=== PATIENT | female | born 1985 | race Caucasian/White ===

== ENCOUNTER 2016-08-28 08:48 | Emergency (ER) | payer BC, OTHER ==
[2016-08-28 09:11] VITALS: BP 149/94
--- NOTE | 2016-08-28 09:39 | UC ---
Throat Pain/Nasal Yefri HPI - HPI Summary HPI Summary: NASAL CONGESTION / COUGH X 7 DAYS + SINUS PAIN AND PRESSURE , NO FEVER, + CHILLS, TOOK LEFT OVER DOXY , STARTED HAVING FACIAL SWELLING AND ITCHY EYES, NO SOB , + WHEEZING - History of Current Complaint Chief Complaint: UCRespiratory Stated Complaint: EYE/LIP COMPLAINT/CONGESTION SORE THROAT Time Seen by Provider: 08/28/16 09:24 Hx Obtained From: Patient Hx Last Menstrual Period: n/a Onset/Duration: Gradual Onset, Lasting Days - 7, Still Present Severity: Moderate Cough: Nonproductive Associated Signs & Symptoms: Positive: Wheezing, Sinus Discomfort, Nasal Discharge. Negative: Fever, Rash - Allergies/Home Medications Allergies/Adverse Reactions: Allergies Allergy/AdvReac Type Severity Reaction Status Date / Time Sulfamethoxazole Allergy Severe Vomiting Verified 08/28/16 09:32 w/Trimethoprim [From Bactrim] Erythromycin [From Pediazole] Allergy Intermediate Hives Verified 08/28/16 09:32 Sulfisoxazole Allergy Intermediate Hives Verified 08/28/16 09:32 [From Pediazole] Ciprofloxacin [From Cipro] Allergy MOUTH AND Verified 08/28/16 09:32 OFELIA SWELLING Penicillins AdvReac Intermediate Diarrhea Verified 08/28/16 09:32 ?doxycycline Allergy Swelling Uncoded 08/28/16 09:32 Of Face,Lips,& Throat Home Medications: Home Medications Tbvcdgo-Nusitaztvezzv-Vvnnaopx [Excedrin Extra Strength] 2 tab PO BID PRN [History Confirmed 08/28/16] Cetirizine* [ZyrTEC 10 MG TAB*] 10 mg PO DAILY PRN 08/28/16 [History Confirmed 08/28/16] Doxycycline TAB(NF) [Doxycycline (NF)] 100 mg PO BID 08/28/16 [History Confirmed 08/28/16] Levonorgestrel (Iud) [Mirena IUD] 20 mcg IU DAILY 08/28/16 [History Confirmed ] Bnjnsvdbgcngn-Jsrpglocmn-Kndac [Nyquil Severe Cold/Flu 5-6.25-10-325 mg/15Ml] 1 liq PO QPM PRN 08/28/16 [History Confirmed 08/28/16] Zinc Gluconate [Cold-Eeze] 13.3 mg PO TID PRN 08/28/16 [History Confirmed ] predniSONE TAB* [Deltasone TAB*] 30 mg PO BID 08/28/16 [History Confirmed ] PMH/Surg Hx/FS Hx/Imm Hx - Additional Past Medical History Additional PMH: HX OF ASTHMA, ON NEEDED ALBUTEROL INH Respiratory History Of: Reports: Asthma - Surgical History Surgical History: Yes Surgery Procedure, Year, and Place: Appendectomy 10/05 - Family History Known Family History: Negative: Diabetes - Social History Alcohol Use: Occasionally Substance Use Type: None Smoking Status (MU): Former Smoker Type: Cigarettes Have You Smoked in the Last Year: Yes Review of Systems Constitutional: Chills, Fatigue Skin: Negative Eyes: Eye Redness ENT: Sore Throat, Nasal Discharge Respiratory: Cough Cardiovascular: Negative Gastrointestinal: Negative All Other Systems Reviewed And Are Negative: Yes Physical Exam Triage Information Reviewed: Yes Appearance: Well-Appearing, No Pain Distress, Well-Nourished Vital Signs: Initial Vital Signs Temp 97.6 F 08/28/16 08:58 Pulse 96 08/28/16 08:58 Resp 18 08/28/16 08:58 BP 149/94 08/28/16 08:58 Pulse Ox 98 08/28/16 08:58 Vital Signs Reviewed: Yes Eyes: Positive: Conjunctiva Inflamed ENT: Positive: Normal ENT inspection, Pharyngeal erythema, Nasal congestion, Nasal drainage, TMs normal Neck: Positive: Supple, Nontender, No Lymphadenopathy Respiratory: Positive: Chest non-tender, Lungs clear, Normal breath sounds Cardiovascular: Positive: RRR, No Murmur, Pulses Normal Skin Exam: Normal Throat Pain/Nasal Course/Dx - Course Assessment/Plan: ELEVATED BLOOD PRESSURE DUE TO CURRENT ILLNESS. PT. WILL FOLLOW UP WITH HER PCP IN ONE WEEK - Differential Dx/Diagnosis Provider Diagnoses: SINUSITIS. BRONCHITIS. ALLERGIC REACTION TO MEDS Discharge - Discharge Plan Condition: Stable Disposition: HOME Prescriptions: Albuterol HFA INHALER* [Ventolin HFA Inhaler*] 1 - 2 puff INH Q4H PRN #1 mdi PRN Reason: Wheezing Amoxicillin/Clavulanate TAB* [Augmentin TAB 875*] 875 mg PO BID #20 tab predniSONE TAB* [Deltasone TAB*] 40 mg PO DAILY #10 tab Patient Education Materials: Sinusitis (ED), Acute Bronchitis (ED) Forms: *Work Release Referrals: No Primary Care Phys,NOPCP [Primary Care Provider] - If Needed
== END 2016-08-28 09:45 | disposition home or self-care (01) ==
LOC: UCCORT 08:48
DX: J32.9 Chronic sinusitis, unspecified (principal); J40 Bronchitis, not specified as acute or chronic; R22.0 Localized swelling, mass and lump, head; T36.4X5A Adverse effect of tetracyclines, initial encounter; Y92.9 Unspecified place or not applicable; R03.0 Elevated blood-pressure reading, without diagnosis of hypertension; Z88.1 Allergy status to other antibiotic agents; Z88.0 Allergy status to penicillin; Z88.2 Allergy status to sulfonamides; Z87.891 Personal history of nicotine dependence
CPT/HCPCS: 99212; G0463

== ENCOUNTER 2016-08-31 17:58 | Emergency (ER) | payer BC ==
[2016-08-31] MEDS ORDERED: Ipratropium 0.5MG/2.5ML NEB* 0.5 MG/2.5 ML NEB.SOLN INH ONE ×2 (19:05→20:22)
--- NOTE | 2016-08-31 19:12 | UC ---
Respiratory Complaint HPI - HPI Summary HPI Summary: 31 yo female with cough and wheezing for about a week using rescue inhaler on day four of prednisone and augmentin and not improving - History of Current Complaint Chief Complaint: UCGeneralIllness Stated Complaint: HEAD CONGESTION, COUGH Time Seen by Provider: 08/31/16 18:58 Hx Obtained From: Patient Hx Last Menstrual Period: MIRENA Onset/Duration: Gradual Onset, Lasting Days Timing: Constant Severity Initially: Mild Severity Currently: Moderate Pain Intensity: 4 Pain Scale Used: 0-10 Numeric Character: Cough: Nonproductive Aggravating Factors: Exertion Alleviating Factors: Bronchodilator Associated Signs And Symptoms: Positive: Dyspnea, Fever - at onset, Wheezing, Nasal Congestion, Sinus Discomfort - Allergies/Home Medications Allergies/Adverse Reactions: Allergies Allergy/AdvReac Type Severity Reaction Status Date / Time Sulfamethoxazole Allergy Severe Vomiting Verified 08/31/16 18:51 w/Trimethoprim [From Bactrim] Erythromycin [From Pediazole] Allergy Intermediate Hives Verified 08/31/16 18:51 Sulfisoxazole Allergy Intermediate Hives Verified 08/31/16 18:51 [From Pediazole] Ciprofloxacin [From Cipro] Allergy MOUTH AND Verified 08/31/16 18:51 OFELIA SWELLING Penicillins AdvReac Intermediate Diarrhea Verified 08/31/16 18:51 ?doxycycline Allergy Swelling Uncoded 08/31/16 18:51 Of Face,Lips,& Throat Home Medications: Home Medications Acetaminophen [Extra Strength Acetaminop] 1,000 mg PO Q6H PRN 08/31/16 [History Confirmed 08/31/16] PMH/Surg Hx/FS Hx/Imm Hx Previously Healthy: Yes Respiratory History Of: Reports: Asthma, Bronchitis - Surgical History Surgical History: Yes Surgery Procedure, Year, and Place: Appendectomy 10/05 - Family History Known Family History: Positive: Hypertension, Respiratory Disease Negative: Diabetes - Social History Alcohol Use: Occasionally Substance Use Type: None Smoking Status (MU): Former Smoker Type: Cigarettes Have You Smoked in the Last Year: Yes When Did the Patient Quit Smoking/Using Tobacco: 2012 Review of Systems Constitutional: Fatigue Skin: Negative Eyes: Negative ENT: Nasal Discharge Respiratory: Shortness Of Breath, Cough Cardiovascular: Negative Gastrointestinal: Negative Genitourinary: Negative Motor: Negative Neurovascular: Negative Musculoskeletal: Negative Neurological: Negative Psychological: Negative All Other Systems Reviewed And Are Negative: Yes Physical Exam Triage Information Reviewed: Yes Appearance: Well-Appearing, No Pain Distress, Well-Nourished Vital Signs: Initial Vital Signs Temp 99.5 F 08/31/16 18:43 Pulse 75 08/31/16 18:43 Resp 16 08/31/16 18:43 BP 140/91 08/31/16 18:43 Pulse Ox 96 08/31/16 18:43 Eyes: Positive: Conjunctiva Clear ENT: Positive: Hearing grossly normal, Nasal congestion, Nasal drainage, TMs normal. Negative: Tonsillar swelling, Tonsillar exudate, Trismus, Muffled/ hoarse voice Dental: Negative: Gross Decay/Caries @, Dental Fracture @ Neck: Positive: Supple, Nontender, No Lymphadenopathy Respiratory: Positive: No respiratory distress, No accessory muscle use, Wheezing Cardiovascular: Positive: RRR, No Murmur, Pulses Normal UC Diagnostic Evaluation - Laboratory O2 Sat by Pulse Oximetry: 96 - normal/not hypoxic Re-Evaluation - Re-Evaluation First Eval Re-Evaluation Time: 19:55 Change: Improved - still wheezing a lot/but better air movement Second Eval Re-Evaluation Time: 21:15 Change: Improved - better air movement but with significant wheezing Respiratory Course/Dx - Differential Dx/Diagnosis Provider Diagnoses: acute bronchitis with bronchospasm Discharge - Discharge Plan Condition: Stable Disposition: HOME Prescriptions: Albuterol 2.5MG/3ML (0.083%)* [Ventolin 2.5 MG/3 ML NEB.KOFI*] 2.5 mg INH QID PRN #1 neb.kofi PRN Reason: Wheezing Ipratropium 0.5MG/2.5ML NEB* [Atrovent 0.5 MG NEB.KOFI*] 0.5 mg INH QID PRN #1 meb.soln PRN Reason: Sob/Wheezing Prednisone 60 mg PO DAILY #9 tab Patient Education Materials: Bronchospasm (ED) Forms: *Work Release Referrals: [facility] [place] [facility] [Outside] - As Soon As Possible Additional Instructions: You need to find a cloth feeder return for new or worsening symptoms call around to find a nebulizer/call us in AM if you can not find a local pharmacy with one your BP is a little elevated and needs to be followed
[2016-08-31] MEDS: Albuterol 2.5 MG/3 ML NEB.SOL* (0.083%) INH ONE (19:18)
[2016-08-31] MEDS ORDERED: predniSONE TAB* 20 MG PO ONE (19:56)
[2016-08-31] MEDS ORDERED: Albuterol 2.5 MG/3 ML NEB.SOL* (0.083%) INH ONE (20:22)
--- NOTE | 2016-08-31 21:04 | RAD ---
Indication: Cough, wheezing. 2 views of the chest demonstrate no mediastinal shift. Heart is of normal size and configuration. Lung clark demonstrate no pleural fluid, pneumonia or pneumothorax. When compared to previous exam of August 03, 2008 no significant change is noted. IMPRESSION: No active cardiopulmonary disease is noted.
[2016-08-31 21:41] VITALS: BP 136/97
== END 2016-08-31 21:41 | disposition home or self-care (01) ==
LOC: UCCORT 17:58
DX: J20.9 Acute bronchitis, unspecified (principal); Z88.1 Allergy status to other antibiotic agents; Z88.0 Allergy status to penicillin; Z88.2 Allergy status to sulfonamides; Z87.891 Personal history of nicotine dependence
CPT/HCPCS: 71020; 99213; G0463; J7512; J7644

== ENCOUNTER 2017-02-23 09:06 | Emergency (ER) | payer BC ==
[2017-02-23 09:29] VITALS: BP 135/82
--- NOTE | 2017-02-23 09:41 | UC ---
Throat Pain/Nasal Yefri HPI - HPI Summary HPI Summary: SORE THROAT X 3 DAYS PAIN IS SEVER, MOSTLY ON THE LEFT SIDE NO FEVER, NO CHILLS NO COUGH, NO NASAL CONGESTION - History of Current Complaint Chief Complaint: UCRespiratory Stated Complaint: SORE THROAT Time Seen by Provider: 02/23/17 09:33 Hx Obtained From: Patient Hx Last Menstrual Period: unknown, has mirena ?: No Onset/Duration: Gradual Onset, Lasting Days - 3, Still Present Severity: Severe Cough: None Associated Signs & Symptoms: Negative: Sinus Discomfort, Nasal Discharge, Fever - Allergies/Home Medications Allergies/Adverse Reactions: Allergies Allergy/AdvReac Type Severity Reaction Status Date / Time Sulfamethoxazole Allergy Severe Vomiting Verified 02/23/17 09:30 w/Trimethoprim [From Bactrim] Erythromycin [From Pediazole] Allergy Intermediate Hives Verified 02/23/17 09:30 Sulfisoxazole Allergy Intermediate Hives Verified 02/23/17 09:30 [From Pediazole] Ciprofloxacin [From Cipro] Allergy MOUTH AND Verified 02/23/17 09:30 OFELIA SWELLING Penicillins AdvReac Intermediate Diarrhea Verified 02/23/17 09:30 ?doxycycline Allergy Swelling Uncoded 02/23/17 09:30 Of Face,Lips,& Throat PMH/Surg Hx/FS Hx/Imm Hx Previously Healthy: Yes - Surgical History Surgical History: Yes Surgery Procedure, Year, and Place: Appendectomy 10/05 - Family History Known Family History: Positive: Hypertension, Respiratory Disease Negative: Diabetes - Social History Alcohol Use: Rare Substance Use Type: None Smoking Status (MU): Former Smoker Type: Cigarettes Have You Smoked in the Last Year: Yes When Did the Patient Quit Smoking/Using Tobacco: 2012 - Immunization History Most Recent Influenza Vaccination: no Review of Systems Constitutional: Negative Skin: Negative Eyes: Negative ENT: Sore Throat Respiratory: Negative Cardiovascular: Negative Gastrointestinal: Negative Is Patient Immunocompromised?: No All Other Systems Reviewed And Are Negative: Yes Physical Exam Triage Information Reviewed: Yes Appearance: Well-Appearing, No Pain Distress, Well-Nourished Vital Signs: Initial Vital Signs Temp 98.9 F 02/23/17 09:26 Pulse 91 02/23/17 09:26 Resp 16 02/23/17 09:26 BP 135/82 02/23/17 09:26 Pulse Ox 98 02/23/17 09:26 Vital Signs Reviewed: Yes Eye Exam: Normal Eyes: Positive: Conjunctiva Clear ENT: Positive: Normal ENT inspection, Hearing grossly normal, Pharyngeal erythema, Tonsillar swelling, Tonsillar exudate Neck exam: Normal Neck: Positive: Supple, Tenderness @, Enlarged Nodes @ Respiratory Exam: Normal Respiratory: Positive: Chest non-tender, Lungs clear, Normal breath sounds Cardiovascular: Positive: RRR, No Murmur, Pulses Normal Skin Exam: Normal Throat Pain/Nasal Course/Dx - Differential Dx/Diagnosis Provider Diagnoses: PHARYNGITIS Discharge - Discharge Plan Condition: Stable Disposition: HOME Prescriptions: Amoxicillin PO (*) [Amoxicillin 875 MG (*)] 875 mg PO BID #20 tab Patient Education Materials: Pharyngitis (ED) Forms: *Work Release Referrals: No Primary Care Phys,NOPCP [Primary Care Provider] - 5 Days
== END 2017-02-23 09:51 | disposition home or self-care (01) ==
LOC: UCCORT 09:06
DX: J02.9 Acute pharyngitis, unspecified (principal); Z88.1 Allergy status to other antibiotic agents; Z88.0 Allergy status to penicillin; Z88.2 Allergy status to sulfonamides
CPT/HCPCS: 99212; G0463

== ENCOUNTER 2017-02-25 19:08 | Emergency (ER) | payer BC ==
[2017-02-25 19:24] VITALS: BP 147/103
[2017-02-25] MEDS ORDERED: predniSONE TAB* 20 MG PO ONE (19:32)
[2017-02-26 10:18] LABS: EBV Response NO
[2017-02-26 10:46] LABS: Hematocrit 48 % (35-47); Hemoglobin 15.6 g/dl (12.0-16.0); Mean Corpuscular HGB Conc 33 g/dl (31-36); Mean Corpuscular Hemoglobin 30 pg (27-31); Mean Corpuscular Volume 91 fL (80-97); Mean Platelet Volume 10 um3 (7.4-10.4); Red Blood Count 5.27 10^6/ul (4.0-5.4); Red Cell Distribution Width 14 % (10.5-15); White Blood Count 11.8 10^3/ul (3.5-10.8)
[2017-02-26 10:48] LABS: Add Diff/Slide Review? Slide Review Added; Comments Flag Yes
[2017-02-26 11:10] LABS: Manual Entry Verification JEA0012; Mono Internal Control QC Line Present
[2017-02-26 13:01] LABS: Add Path Review? YES; Eosinophils % 1 % (0-6); Neutrophil % 10 % (38-83); RBC Morphology Normal (Normal); Reactive Lymph % 32 % (0-6)
--- NOTE | 2017-02-26 15:44 | UC ---
Progress - Progress Note Progress Note: positive Mccreary may stop the Antibiotics cont. with prednisone no contact sports for 6 weeks follow up with your pcp in one week
--- NOTE | 2017-03-01 19:57 | UC ---
Throat Pain/Nasal Yefri HPI - HPI Summary HPI Summary: [address] x 1 weeks feverish PHILLIPS malaise not improved with amox - History of Current Complaint Chief Complaint: UCGeneralIllness Stated Complaint: SORE THROAT Time Seen by Provider: 02/25/17 19:13 Hx Obtained From: Patient Hx Last Menstrual Period: has mirena Onset/Duration: Gradual Onset, Lasting Days Severity: Moderate Pain Intensity: 7 Pain Scale Used: 0-10 Numeric Cough: None Associated Signs & Symptoms: Positive: Fever - Allergies/Home Medications Allergies/Adverse Reactions: Allergies Allergy/AdvReac Type Severity Reaction Status Date / Time Erythromycin [From Pediazole] Allergy Intermediate Hives Verified 02/25/17 19:16 Sulfisoxazole Allergy Intermediate Hives Verified 02/25/17 19:16 [From Pediazole] Ciprofloxacin [From Cipro] Allergy MOUTH AND Verified 02/25/17 19:16 OFELIA SWELLING Sulfamethoxazole AdvReac Severe Vomiting Verified 02/25/17 19:16 w/Trimethoprim [From Bactrim] Penicillins AdvReac Intermediate Diarrhea Verified 02/25/17 19:16 ?doxycycline Allergy Swelling Uncoded 02/25/17 19:16 Of Face,Lips,& Throat PMH/Surg Hx/FS Hx/Imm Hx Previously Healthy: Yes - Surgical History Surgical History: Yes Surgery Procedure, Year, and Place: Appendectomy 10/05 - Family History Known Family History: Positive: Hypertension, Respiratory Disease Negative: Diabetes - Social History Alcohol Use: Occasionally Substance Use Type: None Smoking Status (MU): Former Smoker Type: Cigarettes Have You Smoked in the Last Year: Yes When Did the Patient Quit Smoking/Using Tobacco: 2012 - Immunization History Most Recent Influenza Vaccination: no Review of Systems Constitutional: Fever Skin: Negative Eyes: Negative ENT: Sore Throat Respiratory: Negative Cardiovascular: Negative Gastrointestinal: Negative Genitourinary: Negative Motor: Negative Neurovascular: Negative Musculoskeletal: Negative Neurological: Negative Psychological: Negative Is Patient Immunocompromised?: No All Other Systems Reviewed And Are Negative: Yes Physical Exam Triage Information Reviewed: Yes Appearance: Well-Appearing, No Pain Distress, Well-Nourished Vital Signs: Initial Vital Signs Temp 96.7 F 02/25/17 19:18 Pulse 103 02/25/17 19:18 Resp 16 02/25/17 19:18 BP 147/103 02/25/17 19:18 Pulse Ox 99 02/25/17 19:18 Vital Signs Reviewed: Yes Eyes: Positive: Conjunctiva Clear ENT: Positive: Hearing grossly normal, Pharyngeal erythema, TMs normal, Tonsillar swelling, Tonsillar exudate, Other: - midline uvula Neck: Positive: Supple, Enlarged Nodes @ - ant and post cervical Respiratory: Positive: Lungs clear, Normal breath sounds, No respiratory distress Cardiovascular: Positive: RRR, No Murmur Abdomen Description: Positive: Nontender, No Organomegaly. Negative: CVA Tenderness (R), CVA Tenderness (L), Splenomegaly Musculoskeletal: Positive: ROM Intact, No Edema Neurological: Positive: Alert Psychological Exam: Normal Skin Exam: Normal Throat Pain/Nasal Course/Dx - Differential Dx/Diagnosis Provider Diagnoses: exudative tonsillitis. suspect MONO Discharge - Discharge Plan Condition: Stable Disposition: HOME Prescriptions: Prednisone 60 mg PO DAILY #6 tab Patient Education Materials: Mononucleosis (ED), Tonsillitis (ED) Forms: *Work Release Referrals: ELIER Aj [Primary Care Provider] - 3 Days Additional Instructions: I suspect MONO if test is (+) you may stop AMOX rest fluids tylenol warm salt water gargles
== END 2017-02-25 19:48 | disposition home or self-care (01) ==
LOC: UCCORT 19:08
DX: B27.90 Infectious mononucleosis, unspecified without complication (principal)
CPT/HCPCS: 36415; 85025; 85060; 86308; 87651; 99212; G0463; J7512

== ENCOUNTER 2017-06-07 07:54 | Emergency (ER) | payer BC ==
[2017-06-07 08:03] VITALS: BP 123/82
--- NOTE | 2017-06-07 08:11 | UC ---
Skin Complaint HPI - HPI Summary HPI Summary: 32 yo female with painful lump near tail bone x 1 day progressively worsening pain 3/10 standing, 8/10 sitting no f/c no n/v no Hx MRSA - History of Current Complaint Stated Complaint: BACK PAIN Hx Obtained From: Patient Hx Last Menstrual Period: unknown, mirena Onset/Duration: Gradual Onset, Lasting Hours Timing: Constant Onset Severity: Mild Current Severity: Moderate Pain Intensity: 3 - 8 sitting Pain Scale Used: 0-10 Numeric Location: Discrete Character: Swelling, Pain Aggravating Factor(s): Touch Alleviating Factor(s): Other - position Associated Signs & Symptoms: Positive: Tenderness - Allergy/Home Medications Allergies/Adverse Reactions: Allergies Allergy/AdvReac Type Severity Reaction Status Date / Time Erythromycin [From Pediazole] Allergy Intermediate Hives Verified 06/07/17 08:04 Sulfisoxazole Allergy Intermediate Hives Verified 06/07/17 08:04 [From Pediazole] Ciprofloxacin [From Cipro] Allergy MOUTH AND Verified 06/07/17 08:04 OFELIA SWELLING Sulfamethoxazole AdvReac Severe Vomiting Verified 06/07/17 08:04 w/Trimethoprim [From Bactrim] Penicillins AdvReac Intermediate Diarrhea Verified 06/07/17 08:04 ?doxycycline Allergy Swelling Uncoded 06/07/17 08:04 Of Face,Lips,& Throat Home Medications: Home Medications FLUoxetine CAP* [PROzac CAP*] 20 mg PO DAILY 06/07/17 [History Confirmed ] cloNIDine TAB* [Catapres 0.1 MG TAB*] 0.1 mg PO BID 06/07/17 [History Confirmed 06/07/17] Review of Systems Constitutional: Negative Skin: Negative Eyes: Negative ENT: Negative Respiratory: Negative Cardiovascular: Negative Gastrointestinal: Negative Genitourinary: Negative Motor: Negative Neurovascular: Negative Musculoskeletal: Negative Neurological: Negative Psychological: Negative Is Patient Immunocompromised?: No All Other Systems Reviewed And Are Negative: Yes PMH/Surg Hx/FS Hx/Imm Hx Respiratory History: Asthma, Pneumonia - Surgical History Surgical History: Yes Surgery Procedure, Year, and Place: Appendectomy 10/05 - Family History Known Family History: Positive: Hypertension, Respiratory Disease Negative: Diabetes - Social History Alcohol Use: Rare Substance Use Type: None Smoking Status (MU): Former Smoker Type: Cigarettes Have You Smoked in the Last Year: Yes When Did the Patient Quit Smoking/Using Tobacco: 2012 - Immunization History Most Recent Influenza Vaccination: no Physical Exam Triage Information Reviewed: Yes Appearance: Well-Appearing, No Pain Distress, Well-Nourished Vital Signs: Initial Vital Signs Temp 98.3 F 06/07/17 07:58 Pulse 81 06/07/17 07:58 Resp 16 06/07/17 07:58 BP 123/82 06/07/17 07:58 Pulse Ox 98 06/07/17 07:58 Eyes: Positive: Conjunctiva Clear ENT: Negative: Nasal congestion, Nasal drainage, Trismus, Muffled voice, Hoarse voice Neck: Positive: Supple Respiratory: Positive: Lungs clear, Normal breath sounds, No respiratory distress, No accessory muscle use Cardiovascular: Positive: RRR, No Murmur Musculoskeletal: Positive: ROM Intact, No Edema Neurological: Positive: Alert Psychological Exam: Normal Course/Dx - Diagnoses Provider Diagnoses: Incision and drainage of pilonidal cyst Procedures - Procedure Summary Procedure Summary: Procedure: Incision and Drainage of pilonidal cyst/abscess permit signed time out sterile prep anesth with 2cc lidocaine plus epi incised with 11 blade probed with hemostat scant drainage culture obtained sterile dressing applied Discharge - Discharge Plan Condition: Stable Disposition: HOME Prescriptions: Cephalexin CAP* [Keflex CAP*] 500 mg PO QID #28 cap Patient Education Materials: Pilonidal Cyst (ED), Warm Compress or Soak (ED) Forms: *Work Release Referrals: Stacy Capone MD [Medical Doctor] - If Needed ELIER Aj [Primary Care Provider] - 3 Days (if not better) Additional Instructions: sitz baths 4x day ibuprofen 200mg 3-4 pills 4x day with food for pain to ER for new or worsening symptoms increased pain fever vomiting I suggest surgical follow up a culture is pending Images Front/Back of Body, Lg ([place]): 1 - tender/swollen just right of gluteal cleft
[2017-06-07] MEDS ORDERED: Lidocain 1% EPI 1:100,000 * 30 ML MDV INJ ONE (08:20)
[2017-06-07] MEDS ORDERED: Lidocaine 1% MPF wEPI 200,000* 30 ML SDV ONE (08:23)
[2017-06-07] MEDS ORDERED: Lidocaine 1% MPF wEPI 200,000* 30 ML SDV INJ ONE (08:25)
== END 2017-06-07 09:01 | disposition home or self-care (01) ==
LOC: UCCORT 07:54
DX: L05.91 Pilonidal cyst without abscess (principal); Z97.5 Presence of (intrauterine) contraceptive device; Z88.3 Allergy status to other anti-infective agents; Z88.0 Allergy status to penicillin; J45.909 Unspecified asthma, uncomplicated; Z87.01 Personal history of pneumonia (recurrent); Z87.891 Personal history of nicotine dependence
CPT/HCPCS: 10060; 87070; 87077; 87205; 87640; 87641; 99212; G0463; J2001

== ENCOUNTER 2019-06-20 17:12 | Emergency (ER) | payer SELFPAY ==
[2019-06-20 17:38] VITALS: BP 149/99
[2019-06-20 17:50] LABS: Influenza A Molecular POSITIVE (Negative)
--- NOTE | 2019-06-20 17:55 | UC ---
Respiratory Complaint HPI - HPI Summary HPI Summary: Pt presents with c/o sudden onset fever, chills, cough, nasal, sinus, and chest congestion. Pt has had sinus pressure and pain X 2 weeks. - History of Current Complaint Chief Complaint: UCGeneralIllness Stated Complaint: FLU LIKE SYMPTOMS Time Seen by Provider: 06/20/19 17:43 Hx Obtained From: Patient Hx Last Menstrual Period: unknown ?: No Onset/Duration: Sudden Onset, Gradual Onset, Still Present, Worse Since - two days Timing: Constant Severity Initially: Mild Severity Currently: Moderate Pain Intensity: 5 Character: Cough: Nonproductive Aggravating Factors: Exertion, Deep Breaths, Recumbent Position Alleviating Factors: Nothing Associated Signs And Symptoms: Positive: Fever, URI, Nasal Congestion, Sinus Discomfort - Risk Factors Pulmonary Embolism Risk Factors: Negative Cardiac Risk Factors: Negative Pseudomonas Risk Factors: Negative Tuberculosis Risk Factors: Negative - Allergies/Home Medications Allergies/Adverse Reactions: Allergies Allergy/AdvReac Type Severity Reaction Status Date / Time ciprofloxacin [From Cipro] Allergy Swelling Verified 06/20/19 17:38 Of Face,Lips,& Throat erythromycin base Allergy Hives Verified 06/20/19 17:38 Penicillins Allergy Diarrhea Verified 06/20/19 17:38 sulfamethoxazole Allergy Vomiting Verified 06/20/19 17:38 [From Bactrim] sulfisoxazole Allergy Hives Verified 06/20/19 17:38 [From Pediazole] trimethoprim [From Bactrim] Allergy Vomiting Verified 06/20/19 17:38 ?doxycycline Allergy Swelling Uncoded 06/20/19 17:38 Of Face,Lips,& Throat PMH/Surg Hx/FS Hx/Imm Hx Previously Healthy: Yes Respiratory History: Asthma - Surgical History Surgical History: Yes Surgery Procedure, Year, and Place: Appendectomy 10/05 - Family History Known Family History: Positive: Hypertension, Respiratory Disease Negative: Diabetes - Social History Occupation: Employed Full-time Lives: With Family Alcohol Use: Rare Substance Use Type: None Smoking Status (MU): Former Smoker Type: Cigarettes Have You Smoked in the Last Year: Yes When Did the Patient Quit Smoking/Using Tobacco: 2012 - Immunization History Most Recent Influenza Vaccination: no Vaccination Up to Date: No Review of Systems All Other Systems Reviewed And Are Negative: Yes Constitutional: Positive: Fever, Chills, Fatigue Skin: Positive: Negative Eyes: Positive: Negative ENT: Positive: Sore Throat, Ear Ache, Sinus Congestion, Sinus Pain/Tenderness Respiratory: Positive: Shortness Of Breath, Cough Cardiovascular: Positive: Negative Gastrointestinal: Positive: Negative Genitourinary: Positive: Negative Motor: Positive: Negative Neurovascular: Positive: Negative Musculoskeletal: Positive: Myalgia Neurological: Positive: Headache Psychological: Positive: Negative Is Patient Immunocompromised?: No Physical Exam Triage Information Reviewed: Yes Appearance: Ill-Appearing, Pain Distress Vital Signs: Initial Vital Signs Temp 99.3 F 06/20/19 17:33 Pulse 99 06/20/19 17:33 Resp 16 06/20/19 17:33 BP 149/99 06/20/19 17:33 Pulse Ox 98 06/20/19 17:33 Vital Signs Reviewed: Yes Eye Exam: Normal ENT: Positive: Nasal congestion, Sinus tenderness Dental Exam: Normal Neck exam: Normal Respiratory: Positive: Other: - upper respiratory congestion Cardiovascular Exam: Normal Musculoskeletal Exam: Normal Neurological Exam: Normal Psychological Exam: Normal Skin Exam: Normal Respiratory Course/Dx - Differential Dx/Diagnosis Differential Diagnosis/HQI/PQRI: Bronchitis, Influenza, Sinusitis Provider Diagnosis: Influenza A, Sinusitis Discharge ED - Sign-Out/Discharge Documenting (check all that apply): Patient Departure All imaging exams completed and their final reports reviewed: No Studies - Discharge Plan Condition: Stable Disposition: HOME Prescriptions: Guaifenesin/Pseudoephedrne HCl [Mucinex D ER 600-60 mg Tablet] 1 each PO Q12H # 14 tab.er.12h Oseltamivir CAP* [Tamiflu CAP*] 75 mg PO Q12H #10 cap predniSONE 10 mg TAB [Deltasone 10 MG TAB*] 30 mg PO DAILY #12 tab Patient Education Materials: Influenza (ED) Forms: *Work Release Referrals: Tawana Almazan NP [Primary Care Provider] - If Needed - Billing Disposition and Condition Condition: STABLE Disposition: Home - Attestation Statements Provider Attestation: Per institutional requirements, I have reviewed the chart, however, I was not consulted specifically or made aware of this patient by the midlevel provider. I did not personally evaluate, interact with, or disposition this patient. EK
== END 2019-06-20 18:09 | disposition home or self-care (01) ==
LOC: UCCORT 17:12
DX: J10.1 Influenza due to other identified influenza virus with other respiratory manifestations (principal); J32.9 Chronic sinusitis, unspecified; Z88.1 Allergy status to other antibiotic agents; Z88.0 Allergy status to penicillin; Z88.2 Allergy status to sulfonamides; Z87.891 Personal history of nicotine dependence
CPT/HCPCS: 99212; G0463

== ENCOUNTER 2019-07-30 07:01 | Emergency (ER) | payer BC ==
[2019-07-30 07:18] VITALS: BP 144/94
--- NOTE | 2019-07-30 07:29 | UC ---
UC General HPI - HPI Summary HPI Summary: 3 days of persistent painful sore throat. No Cough, congestion, or URI symptoms. No fever. States she has a hard time eating or drinking. Has been taking Nyquil and ibuprofen 800 mg without much improvement. No N/V. No SOB. Diarrhea. No abdominal pain. Meds; Reviewed - History of Current Complaint Chief Complaint: UCRespiratory Stated Complaint: ST Time Seen by Provider: 07/30/19 07:08 Hx Last Menstrual Period: Mirena IUD Pain Intensity: 6 - Allergy/Home Medications Allergies/Adverse Reactions: Allergies Allergy/AdvReac Type Severity Reaction Status Date / Time ciprofloxacin [From Cipro] Allergy Swelling Verified 07/30/19 07:14 Of Face,Lips,& Throat erythromycin base Allergy Hives Verified 07/30/19 07:14 sulfisoxazole Allergy Hives Verified 07/30/19 07:14 [From Pediazole] Penicillins AdvReac Diarrhea Verified 07/30/19 07:14 sulfamethoxazole AdvReac Vomiting Verified 07/30/19 07:14 [From Bactrim] trimethoprim [From Bactrim] AdvReac Vomiting Verified 07/30/19 07:14 Home Medications: Home Medications Albuterol HFA INHALER* [Ventolin HFA Inhaler*] 3 puff INH Q3H PRN 04/27/12 [ History Confirmed 07/30/19] Levonorgestrel (Iud) [Mirena IUD] 20 mcg IU DAILY 08/28/16 [History Confirmed ] Ibuprofen TAB* [Advil TAB*] 800 mg PO Q8H PRN 01/22/19 [History Confirmed ] Dm/Acetaminophen/Doxylamine [Vicks Nyquil Cold-Flu Liquid] 30 ml PO Q6H PRN 10/13 [History Confirmed 07/30/19] Spironolactone TAB* [Aldactone TAB*] 25 mg PO DAILY 07/30/19 [History Confirmed 07/30/19] PMH/Surg Hx/FS Hx/Imm Hx Previously Healthy: Yes - Surgical History Surgical History: Yes Surgery Procedure, Year, and Place: Appendectomy, 2012 - Family History Known Family History: Positive: Hypertension, Respiratory Disease Negative: Diabetes - Social History Alcohol Use: Rare Substance Use Type: None Smoking Status (MU): Former Smoker Type: Cigarettes Have You Smoked in the Last Year: Yes When Did the Patient Quit Smoking/Using Tobacco: 2012 - Immunization History Most Recent Influenza Vaccination: no Vaccination Up to Date: No Review of Systems All Other Systems Reviewed And Are Negative: Yes ENT: Positive: Sore Throat Physical Exam Triage Information Reviewed: Yes Appearance: Well-Appearing Vital Signs: Initial Vital Signs Temp 98.6 F 07/30/19 07:09 Pulse 84 07/30/19 07:09 Resp 15 07/30/19 07:09 BP 144/94 07/30/19 07:09 Pulse Ox 100 07/30/19 07:09 ENT: Positive: Pharyngeal erythema, TMs normal, Tonsillar swelling Neck: Positive: Supple, Enlarged Nodes @ - anterior cervical nodes Respiratory: Positive: Lungs clear, Normal breath sounds Cardiovascular: Positive: RRR, No Murmur Course/Dx - Course Course Of Treatment: This is a 34 year old with a sore throat Rapid strep: negative nontoxic appearing Plan Your rapid strep test was negative Your symptoms are consistent with a viral pharyngitis Continue to drink fluids, rest and ibuprofen as needed for pain/swelling -take as directed If symptoms persist or worsen, recommend follow up with PCP or return to urgent care - Diagnoses Provider Diagnosis: Viral pharyngitis Discharge ED - Sign-Out/Discharge Documenting (check all that apply): Patient Departure All imaging exams completed and their final reports reviewed: No Studies - Discharge Plan Condition: Fair Disposition: HOME Patient Education Materials: Pharyngitis (ED) Forms: *Work Release Referrals: Tawana Almazan NP [Primary Care Provider] - Additional Instructions: Your rapid strep test was negative Your symptoms are consistent with a viral pharyngitis Continue to drink fluids, rest and ibuprofen as needed for pain/swelling -take as directed If symptoms persist or worsen, recommend follow up with PCP or return to urgent care - Billing Disposition and Condition Condition: FAIR Disposition: Home
[2019-07-30] MEDS: Dexamethasone TAB* 4 MG PO ONE (07:30)
== END 2019-07-30 07:33 | disposition home or self-care (01) ==
LOC: UCCORT 07:01
DX: J02.8 Acute pharyngitis due to other specified organisms (principal); B97.89 Other viral agents as the cause of diseases classified elsewhere; Z88.0 Allergy status to penicillin; Z88.1 Allergy status to other antibiotic agents; Z88.2 Allergy status to sulfonamides; Z87.891 Personal history of nicotine dependence
CPT/HCPCS: 87651; 99212; G0463; J8540